=== PATIENT | female | born 1970 | race Caucasian/White ===

== ENCOUNTER 2018-03-02 10:18 | Emergency (ER) | payer BC ==
[2018-03-02 10:26] VITALS: TEMP 97.6
[2018-03-02] MEDS ORDERED: IOPAMIDOL-300 CONTRAST 30 ML VIAL (ORAL USE) PO PRN (10:49)
[2018-03-02] MEDS ORDERED: KETOROLAC 30 MG/ML 1 ML VIAL IVP STA (10:49)
[2018-03-02] MEDS ORDERED: SODIUM CHLORIDE 0.9% 1,000 ML IV ONE (10:49)
[2018-03-02] MEDS ORDERED: DICYCLOMINE 20 MG TAB PO STA (10:49)
--- NOTE | 2018-03-02 11:08 | ED ---
Abdominal Pain HPI - General Chief Complaint: Abdominal Pain Stated Complaint: Back Pain Time Seen by Provider: 03/02/18 10:28 Source: patient Mode of arrival: wheelchair Limitations: no limitations - History of Present Illness Initial Comments: Patient is a 47-year-old female who presents with a chief complaint of abdominal pain. Patient states that this going on for 6 months, she has had extensive workup including labs, CT scans with and without contrast, and an MRI. The patient states that the only thing that they have found are chronic urinary tract infections, and a right renal cyst. Patient states that she also has a history of IBS. The patient cannot identify any inciting incident. She does not recall any changes in lifestyle or inciting incidents of that started this 6 months ago. Patient denies any aggravating or alleviating factors. Timing is constant for her. Patient states that her workup, she was initially told that she had bladder cancer, further investigation did not show any neoplastic process, currently the patient states that her primary care doctor thinks she has a hernia. - Related Data Home Medications Medication Instructions Recorded Confirmed Budesonide-Formot 160-4.5 Mcg 2 puff INHALATION RT-BID 03/02/18 03/02/18 [Symbicort 160-4.5 Mcg Inhaler] Dicyclomine [Bentyl] 20 mg PO DAILY PRN 03/02/18 03/02/18 Magnesium 200 mg PO DAILY 03/02/18 03/02/18 Multivitamins, Thera [Multivitamin 1 tab PO DAILY 03/02/18 03/02/18 (formulary)] Potassium 99 mg PO DAILY 03/02/18 03/02/18 Sulfamethox-Tmp 400-80Mg [Bactrim 1 tab PO DAILY 03/02/18 03/02/18 SS 400-80 mg] Tolterodine Tartrate [Detrol LA] 2 mg PO DAILY 03/02/18 03/02/18 Allergies Allergy/AdvReac Type Severity Reaction Status Date / Time morphine Allergy Chest Pain Verified 03/02/18 11:17 venom-honey bee Allergy Anaphylaxis Verified 03/02/18 11:17 [bee venom (honey bee)] Review of Systems ROS Statement: Those systems with pertinent positive or pertinent negative responses have been documented in the HPI. ROS Other: All systems not noted in ROS Statement are negative. Gastrointestinal: Reports: abdominal pain, nausea Past Medical History Past Medical History: Asthma, Chest Pain / Angina History of Any Multi-Drug Resistant Organisms: None Reported Past Surgical History: Section, Hysterectomy Additional Past Surgical History / Comment(s): hemorrhoidectomy Past Psychological History: No Psychological Hx Reported Smoking Status: Current every day smoker Past Alcohol Use History: None Reported Past Drug Use History: None Reported General Exam Limitations: no limitations General appearance: alert, in no apparent distress Head exam: Present: atraumatic, normocephalic Eye exam: Present: normal appearance ENT exam: Present: normal exam Neck exam: Present: normal inspection Respiratory exam: Present: normal lung sounds bilaterally. Absent: respiratory distress, wheezes Cardiovascular Exam: Present: regular rate, normal rhythm GI/Abdominal exam: Present: soft, tenderness (Patient has tenderness in the right and left upper quadrant, most of her pain is in the right lower quadrant. Abdominal exam is limited secondary to body habitus. There are no overlying skin changes. No fluctuance noted.). Absent: distended Rectal exam: Present: deferred Extremities exam: Present: normal inspection Back exam: Present: normal inspection. Absent: CVA tenderness (R), CVA tenderness (L) Neurological exam: Present: alert, oriented X3 Psychiatric exam: Present: normal affect, normal mood Skin exam: Present: warm, dry, intact Course Vital Signs 03/02/18 03/02/18 10:23 11:20 Temperature 97.6 F Pulse Rate 78 76 Respiratory 18 20 Rate Blood Pressure 102/70 134/71 O2 Sat by Pulse 97 95 Oximetry Medical Decision Making - Medical Decision Making Patient presents with a chief complaint of 6 months of abdominal pain. On initial evaluation, vitals are stable, patient is in mild distress secondary to pain. Patient will be evaluated with basic labs including liver profile and lipase. Lactate Was Sent. Urinalysis Will Be Evaluated. Patient Will Be Sent for a Computed Tomography Scan with Oral and IV Contrast. EKG performed at 11: 07 AM shows normal sinus rhythm with a rate of 68 bpm. EKG is otherwise unremarkable. 1:27 PM Plan evaluation of this patient is unremarkable. Urinalysis is out of her evidence of infection. Computed tomography scan of the abdomen and pelvis with oral and IV contrast shows no acute intra-abdominal process. There are no hernias identified. At this time, patient was reevaluated. She states that she feels improved with Bentyl. Patient will be prescribed Bentyl for outpatient use, she'll be given referral to GI. Patient was instructed to follow up with primary care in 1-2 days, return to the emergency department if symptoms worsen or change. - Lab Data Result diagrams: 03/02/18 11:15 03/02/18 11:15 Lab Results 03/02/18 03/02/18 03/02/18 Range/Units 10:50 11:15 11:15 WBC 12.1 H (3.8-10.6) k/uL RBC 5.03 (3.80-5.40) m/uL Hgb 14.8 (11.4-16.0) gm/dL Hct 42.5 (34.0-46.0) % MCV 84.5 (80.0-100.0) fL MCH 29.3 (25.0-35.0) pg MCHC 34.7 (31.0-37.0) g/dL RDW 12.8 (11.5-15.5) % Plt Count 437 (150-450) k/uL Neutrophils % 72 % Lymphocytes % 20 % Monocytes % 5 % Eosinophils % 2 % Basophils % 1 % Neutrophils # 8.7 H (1.3-7.7) k/uL Lymphocytes # 2.4 (1.0-4.8) k/uL Monocytes # 0.5 (0-1.0) k/uL Eosinophils # 0.2 (0-0.7) k/uL Basophils # 0.1 (0-0.2) k/uL Sodium 142 (137-145) mmol/L Potassium 4.8 (3.5-5.1) mmol/L Chloride 108 H (98-107) mmol/L Carbon Dioxide 24 (22-30) mmol/L Anion Gap 10 mmol/L BUN 13 (7-17) mg/dL Creatinine 0.71 (0.52-1.04) mg/dL Est GFR (CKD-EPI)AfAm >90 (>60 ml/min/1.73 sqM) Est GFR (CKD-EPI)NonAf >90 (>60 ml/min/1.73 sqM) Glucose 99 (74-99) mg/dL Plasma Lactic Acid Tariq (0.7-2.0) mmol/L Calcium 10.0 (8.4-10.2) mg/dL Total Bilirubin 0.2 (0.2-1.3) mg/dL AST 22 (14-36) U/L ALT 40 (9-52) U/L Alkaline Phosphatase 82 (38-126) U/L Total Protein 6.7 (6.3-8.2) g/dL Albumin 4.2 (3.5-5.0) g/dL Lipase 105 (23-300) U/L Urine Color Yellow Urine Appearance Clear (Clear) Urine pH 5.5 (5.0-8.0) Ur Specific [place] 1.021 (1.001-1.035) Urine Protein Negative (Negative) Urine Glucose (UA) Negative (Negative) Urine Ketones Negative (Negative) Urine Blood Moderate H (Negative) Urine Nitrite Negative (Negative) Urine Bilirubin Negative (Negative) Urine Urobilinogen 2.0 (<2.0) mg/dL Ur Leukocyte Esterase Negative (Negative) Urine RBC 2 (0-5) /hpf Urine WBC 2 (0-5) /hpf Urine Bacteria Rare H (None) /hpf Urine Mucus Rare H (None) /hpf 03/02/18 Range/Units 11:15 WBC (3.8-10.6) k/uL RBC (3.80-5.40) m/uL Hgb (11.4-16.0) gm/dL Hct (34.0-46.0) % MCV (80.0-100.0) fL MCH (25.0-35.0) pg MCHC (31.0-37.0) g/dL RDW (11.5-15.5) % Plt Count (150-450) k/uL Neutrophils % % Lymphocytes % % Monocytes % % Eosinophils % % Basophils % % Neutrophils # (1.3-7.7) k/uL Lymphocytes # (1.0-4.8) k/uL Monocytes # (0-1.0) k/uL Eosinophils # (0-0.7) k/uL Basophils # (0-0.2) k/uL Sodium (137-145) mmol/L Potassium (3.5-5.1) mmol/L Chloride (98-107) mmol/L Carbon Dioxide (22-30) mmol/L Anion Gap mmol/L BUN (7-17) mg/dL Creatinine (0.52-1.04) mg/dL Est GFR (CKD-EPI)AfAm (>60 ml/min/1.73 sqM) Est GFR (CKD-EPI)NonAf (>60 ml/min/1.73 sqM) Glucose (74-99) mg/dL Plasma Lactic Acid Tariq 1.0 (0.7-2.0) mmol/L Calcium (8.4-10.2) mg/dL Total Bilirubin (0.2-1.3) mg/dL AST (14-36) U/L ALT (9-52) U/L Alkaline Phosphatase (38-126) U/L Total Protein (6.3-8.2) g/dL Albumin (3.5-5.0) g/dL Lipase (23-300) U/L Urine Color Urine Appearance (Clear) Urine pH (5.0-8.0) Ur Specific [place] (1.001-1.035) Urine Protein (Negative) Urine Glucose (UA) (Negative) Urine Ketones (Negative) Urine Blood (Negative) Urine Nitrite (Negative) Urine Bilirubin (Negative) Urine Urobilinogen (<2.0) mg/dL Ur Leukocyte Esterase (Negative) Urine RBC (0-5) /hpf Urine WBC (0-5) /hpf Urine Bacteria (None) /hpf Urine Mucus (None) /hpf Disposition Clinical Impression: Abdominal pain Disposition: HOME SELF-CARE Condition: Good Instructions: Abdominal Pain (ED) Is patient prescribed a controlled substance at d/c from ED?: No Referrals: Hoang Kidd MD [Primary Care Provider] - 1-2 days Jared Garrison MD [STAFF PHYSICIAN] - 1-2 days
[2018-03-02 11:23] LABS: Appearance,Urine Clear (Clear); Bacteria,Urine Rare /hpf; Bilirubin,Urine Negative (Negative); Blood,Urine Moderate (Negative); Color,Urine Yellow; Glucose,Urine (UA) Negative (Negative); Ketones,Urine Negative (Negative); Leukocyte Esterase,Urine Negative (Negative); Mucus,Urine Rare /hpf; Nitrite,Urine Negative (Negative); PH, Urine 5.5 (5.0-8.0); Protein,Urine Negative (Negative); RBC,Urine 2 /hpf (0-5); Specific Gravity,Urine 1.021 (1.001-1.035); WBC,Urine 2 /hpf (0-5)
[2018-03-02 11:40] LABS: Basophils # (A) 0.1 k/uL (0-0.2); Basophils % (A) 1 %; Eosinophils # (A) 0.2 k/uL (0-0.7); Eosinophils % (A) 2 %; HCT 42.5 % (34.0-46.0); HGB 14.8 gm/dL (11.4-16.0); Lymphocytes # (A) 2.4 k/uL (1.0-4.8); Lymphocytes % (A) 20 %; MCH 29.3 pg (25.0-35.0); MCHC 34.7 g/dL (31.0-37.0); MCV 84.5 fL (80.0-100.0); Monocytes # (A) 0.5 k/uL (0-1.0); Monocytes % (A) 5 %; Neutrophils # (A) 8.7 k/uL (1.3-7.7); Neutrophils % (A) 72 %; Platelet Count 437 k/uL (150-450); RBC 5.03 m/uL (3.80-5.40); RDW 12.8 % (11.5-15.5); WBC 12.1 k/uL (3.8-10.6)
[2018-03-02 11:49] LABS: ALT 40 U/L (9-52); AST 22 U/L (14-36); Albumin 4.2 g/dL (3.5-5.0); Alkaline Phosphatase 82 U/L (38-126); Anion Gap 10 mmol/L; Blood Urea Nitrogen 13 mg/dL (7-17); Carbon Dioxide 24 mmol/L (22-30); Chloride 108 mmol/L (98-107); Glucose 99 mg/dL (74-99); Lipase 105 U/L (23-300); Potassium 4.8 mmol/L (3.5-5.1); Sodium 142 mmol/L (137-145); Total Bilirubin 0.2 mg/dL (0.2-1.3); Total Protein 6.7 g/dL (6.3-8.2)
--- NOTE | 2018-03-02 13:05 | CT ---
EXAMINATION TYPE: CT abdomen pelvis w con DATE OF EXAM: 03/02/2018 HISTORY: Patient complains of right lower quadrant pain. CT DLP: 2213mGycm Automated Exposure Control for Dose Reduction was Utilized. CONTRAST: CT scan of the abdomen and pelvis is performed with IV Contrast, patient injected with 100 mL of Isov ue 300. COMPARISON: Outside CT abdomen and pelvis June 26, 2017 FINDINGS: Exam is slightly suboptimal secondary to artifact related to patient's large body habitus. LUNG BASES: No significant abnormality is appreciated. LIVER/GB: Heterogeneous hypodense liver consistent with fatty infiltration is present. PANCREAS: No significant abnormality is seen. SPLEEN: No significant abnormality is seen. ADRENALS: No significant abnormality is seen. KIDNEYS: A vague 1.3 cm low dense lesion posteriorly lower pole level right kidney seen best series 7 image 44 is too small to further characterize but favored benign. BOWEL: Normal-appearing appendix is seen from base of cecum. Oral contrast does not reach terminal il eum making evaluation slightly suboptimal. There is no suspicious small or large bowel dilatation see n diverticula in the sigmoid colon are present. There is no CT evidence for acute diverticulitis. UTERUS/ADNEXA: Uterus is surgically absent. A left-sided pelvic phlebolith is seen. LYMPH NODES: No greater than 1cm abdominal or pelvic lymph nodes are appreciated. OSSEOUS STRUCTURES: Multilevel facet arthropathy is seen in lower lumbar levels. OTHER: No significant additional abnormality is seen. IMPRESSION: No CT evidence for acute appendicitis. No significant acute finding is seen to account fo r patient's clinical symptoms.
[2018-03-02 13:47] VITALS: BP 123/84; PULSE 69; RESP 18
== END 2018-03-02 13:47 | disposition home or self-care (01) ==
LOC: EC 10:18
DX: R10.9 Unspecified abdominal pain (principal); M54.9 Dorsalgia, unspecified; J45.909 Unspecified asthma, uncomplicated; F17.200 Nicotine dependence, unspecified, uncomplicated; Z87.19 Personal history of other diseases of the digestive system; Z87.440 Personal history of urinary (tract) infections; Z90.710 Acquired absence of both cervix and uterus; Z79.51 Long term (current) use of inhaled steroids; Z79.899 Other long term (current) drug therapy; Z88.5 Allergy status to narcotic agent; Z91.030 Bee allergy status
CPT/HCPCS: 36415; 93005; 80053; 83605; 83690; 85025; 81001; 74177; 99284; 96374; 96361 ×2; J1885; Q9967

== ENCOUNTER → 2018-11-18 | Outpatient (CLI) | payer BC ==
--- NOTE | 2018-11-18 15:47 | NM ---
EXAMINATION TYPE: NM hepatobiliary w EF DATE OF EXAM: 11/18/2018 COMPARISON: 03/02/2018 CT abdomen pelvis HISTORY: Chronic cholecystitis and cholelithiasis per history. TECHNIQUE: After the intravenous administration of 4.65 mCi Tc 99m Mebrofenin hepatobiliary scintigra phy is performed. Immediate images post injection. FINDINGS: There is satisfactory initial accumulation of tracer by the liver. The gallbladder is visualized wit hin 38 minutes. The small bowel activity is noted within 26 minutes. At one hour 8 ounces of oral e nsure plus is given to mimic CCK and gallbladder ejection fraction is calculated at 20 %, abnormal. Therefore there is no scintigraphic evidence of cystic or common bile duct obstruction to suggest acu te cholecystitis or gallbladder dyskinesia. IMPRESSION: 1. Biliary dyskinesia with abnormal ejection fraction of 20%. 2. No scintigraphic evidence of acute or chronic cholecystitis.
== END | disposition home or self-care (01) ==
LOC: RADNMMAIN 13:04
PROVIDERS: ATTEND Surgery Plastic and Reconstructive Surgery
DX: K82.8 Other specified diseases of gallbladder (principal); Z88.5 Allergy status to narcotic agent; Z91.030 Bee allergy status
CPT/HCPCS: 78226; A9537

== ENCOUNTER 2019-01-21 06:25 | Day surgery (SDC) | payer BC ==
[2019-01-19 10:56] VITALS: BMI 50.2
--- NOTE | 2019-01-20 20:11 | P.GSHP ---
History of Present Illness H&P Date: 01/21/19 CHIEF COMPLAINT: Cholecystitis HISTORY OF PRESENT ILLNESS: The patient is a 48-year-old female who presents with history of epigastric including right upper quadrant abdominal pain. She underwent diagnostic studies for her gallbladder. Separately her clinical picture was consistent with cholecystitis. Now she presents for surgical intervention. PAST MEDICAL HISTORY: Please see list PAST SURGICAL HISTORY: Please see list MEDICATIONS: Please see list ALLERGIES: Denies. SOCIAL HISTORY: Recent tobacco use FAMILY HISTORY: Pertinent for gallbladder disease REVIEW OF ORGAN SYSTEMS: CONSTITUTIONAL: No reports of fevers or chills. HEENT: Denies any troubles with the vision or hearing. Has chronic sinusitis SKIN: No skin cancer. PHYSICAL EXAM: VITAL SIGNS: Afebrile vital signs stable GENERAL: Well-developed pleasant in no acute distress. HEENT: No scleral icterus. Extraocular movements grossly intact. Moist buccal mucosa. NECK: Supple without lymphadenopathy. CHEST: Unlabored respirations. Equal bilateral excursions. CARDIOVASCULAR: Regular rate regular rhythm rhythm. Distal 2+ pulses. ABDOMEN: Soft, nondistended. Tender along the epigastrium and right upper quadrant. MUSCULOSKELETAL: No clubbing, cyanosis, or edema. NEURO: Cranial nerves II to XII within normal limits. No focal or lateralizing signs. PSYCH: Alert and oriented to person, place and time. SKIN: Well-perfused good skin turgor. ASSESSMENT: 1. Epigastric and right upper quadrant abdominal pain 2. Chronic cholecystitis 3. Symptomatic gallstones. 4. Leukocytosis 5. Pre-existing hematuria 6. Recurrent urinary tract infections 7. Recurrent sinusitis PLAN: 1. Will need a robotic cholecystectomy possible open. Benefits and risks were described. 2. Heparin for DVT prophylaxis 5000 units. 3. Antibiotic prophylaxis. 4. I personally called the patient as her outpatient labs from [facility] demonstrate a white blood cell count over 16,000. She reports personal history of recurrent urinary tract infection including sinusitis. High likelihood for increased risk for complications including inpatient hospitalization for pre-existing infection. Patient was agreeable with the risks. 5. Repeat CBC and compress it metabolic panel on day of surgery Past Medical History Past Medical History: Asthma, Chest Pain / Angina, GERD/Reflux Additional Past Medical History / Comment(s): intermittent abdominal micaela sides of abd,has blood in urine,urinary leakage,steroids November 2018 History of Any Multi-Drug Resistant Organisms: None Reported Past Surgical History: Section, Hysterectomy, Orthopedic Surgery Additional Past Surgical History / Comment(s): hemorrhoidectomy,rt knee arthroscopy Past Anesthesia/Blood Transfusion Reactions: No Reported Reaction Additional Past Anesthesia/Blood Transfusion Reaction / Comment(s): no hx blood transfusion Smoking Status: Current every day smoker - Past Family History Mother Family Medical History: No Reported History Medications and Allergies Home Medications Medication Instructions Recorded Confirmed Type Magnesium 200 mg PO DAILY 03/02/18 01/19/19 History Multivitamins, Thera [Multivitamin 1 tab PO DAILY 03/02/18 01/19/19 History (formulary)] Potassium 99 mg PO DAILY 03/02/18 01/19/19 History Tolterodine Tartrate [Detrol LA] 4 mg PO DAILY 03/02/18 01/19/19 History Albuterol Inhaler [Ventolin Hfa 1 - 2 puff INHALATION RT-Q6H PRN 01/19/19 01/19/19 History Inhaler] Albuterol Nebulized [Ventolin 2.5 mg INHALATION QID PRN 01/19/19 01/19/19 History Nebulized] Aspirin 81 mg PO DAILY 01/19/19 01/19/19 History Dicyclomine [Bentyl] 20 mg PO BID 01/19/19 01/19/19 History Omeprazole [PriLOSEC] 20 mg PO QAM 01/19/19 01/19/19 History Allergies Allergy/AdvReac Type Severity Reaction Status Date / Time morphine Allergy Chest Pain Verified 01/19/19 10:43 venom-honey bee Allergy Anaphylaxis Verified 01/19/19 10:43 [bee venom (honey bee)]
[~2019-01-21 06:25] MED LIST: ENOXAPARIN 40 MG/0.4 ML SYRINGE SQ STA; HEPARIN SODIUM,PORCINE 5,000 UNIT/ML 1 ML VIAL SQ ONE; INDOCYANINE GREEN 25 MG VIAL IV STA; ceFAZolin 3 GM in SODIUM CHLORIDE 0.9% 100 ML IVPB ONE
[2019-01-21] MEDS ORDERED: LACTATED RINGERS 1,000 ML IV ONE ×2 (06:58→08:33)
[2019-01-21] MEDS ORDERED: LIDOCAINE 1% 20 ML VIAL (10MG/ML) FOR IV START INTRADERMA ONE (06:58)
[2019-01-21] MEDS ORDERED: DEXAMETHASONE SOD PHOSPHATE 10 MG/ML 1 ML VIAL IV ONE (07:02)
[2019-01-21 07:03] LABS: Basophils # (A) 0.2 k/uL (0-0.2); Basophils % (A) 1 %; Eosinophils # (A) 0.4 k/uL (0-0.7); Eosinophils % (A) 3 %; HCT 44.4 % (34.0-46.0); HGB 14.7 gm/dL (11.4-16.0); Lymphocytes # (A) 3.4 k/uL (1.0-4.8); Lymphocytes % (A) 23 %; MCH 28.5 pg (25.0-35.0); MCHC 33.1 g/dL (31.0-37.0); Monocytes # (A) 0.7 k/uL (0-1.0); Monocytes % (A) 5 %; Neutrophils % (A) 67 %; Platelet Count 499 k/uL (150-450); RBC 5.17 m/uL (3.80-5.40); RDW 14.1 % (11.5-15.5); WBC 14.9 k/uL (3.8-10.6)
[2019-01-21] MEDS ORDERED: ONDANSETRON 4 MG/2 ML VIAL IVP ONE (07:03)
[2019-01-21 07:12] LABS: ALT 33 U/L (9-52); AST 16 U/L (14-36); Alkaline Phosphatase 83 U/L (38-126); Anion Gap 7 mmol/L; Blood Urea Nitrogen 16 mg/dL (7-17); Calcium 9.9 mg/dL (8.4-10.2); Carbon Dioxide 28 mmol/L (22-30); Chloride 105 mmol/L (98-107); Glucose 114 mg/dL (74-99); Potassium 4.2 mmol/L (3.5-5.1); Sodium 140 mmol/L (137-145); Total Bilirubin 0.4 mg/dL (0.2-1.3); Total Protein 6.8 g/dL (6.3-8.2)
[2019-01-21] MEDS ORDERED: BUPIVACAINE-EPI 0.5%-1:200,000 10 ML VIAL SQ ONE ×2 (07:23→07:54)
[2019-01-21] MEDS ORDERED: ALBUTEROL INHALER 60 PUFF/8 GM INHALER INHALATION ONE (07:23)
[2019-01-21] MEDS ORDERED: fentaNYL (PF) 50 MCG/ML 2 ML AMP ONE (07:23)
[2019-01-21] MEDS ORDERED: PROPOFOL 10 MG/ML 20 ML VIAL IV ONE (07:23)
[2019-01-21] MEDS ORDERED: ROCURONIUM BROMIDE 10 MG/ML 10 ML VIAL IV ONE (07:23)
[2019-01-21] MEDS ORDERED: NEOSTIGMINE 1 MG/ML 10 ML VIAL ONE (07:23)
[2019-01-21] MEDS ORDERED: LIDOCAINE 1% INJ 10MG/ML (20 ML MDV) ONE (07:23)
[2019-01-21] MEDS ORDERED: GLYCOPYRROLATE 0.2 MG/ML 2 ML VIAL ONE (07:23)
[2019-01-21] MEDS ORDERED: PHENYLEPHRINE-0.9% NACL SYG 1 MG/10 ML SYRINGE ONE (07:23)
[2019-01-21] MEDS ORDERED: INDOCYANINE GREEN 25 MG VIAL IV ONE ×2 (07:23→07:30)
[2019-01-21] MEDS ORDERED: SUCCINYLCHOLINE CHLORIDE VIAL 200 MG/10 ML VIAL IV ONE (07:23)
[2019-01-21] MEDS ORDERED: MIDAZOLAM 2 MG/2 ML VIAL ONE (07:23)
[2019-01-21] MEDS: HYDROmorphone 1 MG/ML 1 ML SYRINGE IVP ONE ×4 (09:08→09:27)
[2019-01-21 09:16] VITALS: TEMP 96.9
--- NOTE | 2019-01-21 09:24 | P.OP ---
Date of Procedure: 01/21/19 Description of Procedure: SURGEON: LETTY CHERRY MD PREOPERATIVE DIAGNOSES: 1. Pre-existing leukocytosis with sinusitis 2. Chronic cholecystitis 3. Morbid obesity due to excess calories, BMI 50.2 4. Chronic tobacco abuse 5. Hypertensive heart disease 6. Hematuria with chronic UTI 7. Irritable bowel syndrome POSTOPERATIVE DIAGNOSES: 1. Pre-existing leukocytosis with sinusitis 2. Acute on chronic cholecystitis 3. Morbid obesity due to excess calories, BMI 50.2 4. Chronic tobacco abuse 5. Hypertensive heart disease 6. Hematuria with chronic UTI 7. Irritable bowel syndrome 8. Fatty liver disease with severe hepatomegaly OPERATION: Robotic-assisted da Pito Xi laparoscopic cholecystectomy, multiport with FIREFLY ESTIMATED BLOOD LOSS: 30 mL. SPECIMENS REMOVED: Gallbladder. COMPLICATIONS: None. OPERATIVE FINDINGS: 1. Chronic cholecystitis 2. Severe hepatomegaly with fatty liver disease 3. Adhesion along lower midline undisturbed 4. Console time 33 minutes INDICATIONS: The patient is a 48-year-old female who presents with cholelcystitis and leukocytosis. Surgical intervention with a laparoscopic cholecystectomy was described at length including injury to the biliary tree, bleeding, infection, need for further surgery. Informed consent was obtain ed. Robotic assisted laparoscopic approach was described. Benefits and risks of the procedure including but not limited to bleeding, infection, injury to the biliary tree was described. Informed consent was obtained. DESCRIPTION OF PROCEDURE: Patient was brought to the operating room, placed in supine position. After general induction, the abdomen had been prepped and draped in standard sterile fashion. The robotic da Pito XI system was primed. After a timeout protocol was performed, the patient had been prepped and draped in standard sterile fashion. The patient was injected with indocyanine green. A 5 mm 0 degrees laparoscopic trocar entry was performed along the left upper quadrant. The abdomen insufflated to 15 mmHg pressure which was tolerated well. Diagnostic laparoscopy demonstrated no injury to bowel viscera or mesentery. The liver surface was unremarkable. Next, two 8 mm robotic ports were placed along the right upper abdomen. The camera 8-mm port was maintained along the epigastrium. Another 8 mm port was placed along the left upper abdominal wall after exchanging the 5 mm port. Please note that the ports were placed at least 10 to 15 cm away from the target anatomy of the gallbladder. The robot was docked along the left lateral abdomen. The patient was repositioned in reverse Trendelenburg position. Using a grasper for arm 3, a grasper for arm 4, including hook cautery for arm 1, the robotic system was docked and primed as described. Instruments were interchanged by the apartment assistant manager including hook cautery, Bovie cautery and clip appliers. I had sat at the console. The gallbladder fundus was retracted over the dome of the liver. Initial attention was brought to the infundibulum which was gently retracted in the inferior lateral approach. Using a grasper, the cystic duct including the cystic artery was carefully skeletonized. FIREFLY was used to identify the cystic artery and cystic structures. Large PLASTIC clips were used throughout the entire case. Using a clip nutritional yeast supervisor 2 clips were placed proximally, and 1 clip was placed distally along the cystic duct and then cauterized with the cautery. Again care was taken to avoid any injury to the biliary tree as the common bile duct was clearly visualized during this portion of dissection. Next, the cystic artery was similarly clipped and cauterized. Electro-Bovie cautery was used to remove the gallbladder from the hepatic fossa. Hemostasis was checked and found to be adequate. The robot was undocked. I re-scrubbed into the case. Using a 10 mm Endo Catch bag via the left upper quadrant incision, the specimen was removed from the abdominal cavity. All pneumoperitoneum instruments were evacuated from the abdominal cavity. The incisions were reapproximated using 4-0 Monocryl in an interrupted subcuticular fashion. Fascial defects were less than 8 mm in size. Please note along the trocar sites, local anesthetic was placed as a field block prior to insertion of all instruments. Liquid glue was applied to the skin. At the end of the procedure needle, sponge, and instrument count had been verified correct by the assembler surgical garment. The patient was transferred to postanesthesia care unit in stable condition. Intraoperative films were shared with the patient's family who were very pleased with the level of care. Plan - Discharge Summary Discharge Rx Participant: No New Discharge Prescriptions: New Amoxic-Pot Clav 875-125Mg [Augmentin 875-125] 1 each PO Q12HR #10 tab Ibuprofen [Motrin] 600 mg PO Q8HR PRN #30 tab PRN Reason: Pain Acetaminophen [Tylenol] 325 mg PO Q4H #30 tab No Action Tolterodine Tartrate [Detrol LA] 4 mg PO DAILY Multivitamins, Thera [Multivitamin (formulary)] 1 tab PO DAILY Magnesium 200 mg PO DAILY Potassium 99 mg PO DAILY Albuterol Inhaler [Ventolin Hfa Inhaler] 1 - 2 puff INHALATION RT-Q6H PRN PRN Reason: sob Dicyclomine [Bentyl] 20 mg PO BID Aspirin 81 mg PO DAILY Omeprazole [PriLOSEC] 20 mg PO QAM Albuterol Nebulized [Ventolin Nebulized] 2.5 mg INHALATION QID PRN PRN Reason: sob Discharge Medication List Magnesium 200 mg PO DAILY 03/02/18 [History] Multivitamins, Thera [Multivitamin (formulary)] 1 tab PO DAILY 03/02/18 [History] Potassium 99 mg PO DAILY 03/02/18 [History] Tolterodine Tartrate [Detrol LA] 4 mg PO DAILY 03/02/18 [History] Albuterol Inhaler [Ventolin Hfa Inhaler] 1 - 2 puff INHALATION RT-Q6H PRN 01/19/19 [History] Albuterol Nebulized [Ventolin Nebulized] 2.5 mg INHALATION QID PRN 01/19/19 [History] Aspirin 81 mg PO DAILY 01/19/19 [History] Dicyclomine [Bentyl] 20 mg PO BID 01/19/19 [History] Omeprazole [PriLOSEC] 20 mg PO QAM 01/19/19 [History] Acetaminophen [Tylenol] 325 mg PO Q4H #30 tab 01/21/19 [Rx] Amoxic-Pot Clav 875-125Mg [Augmentin 875-125] 1 each PO Q12HR #10 tab 01/21/19 [Rx] Ibuprofen [Motrin] 600 mg PO Q8HR PRN #30 tab 01/21/19 [Rx] Follow up Appointment(s)/Referral(s): Letty Cherry MD [STAFF PHYSICIAN] - 02/08/19 ([facility]) Patient Instructions/Handouts: Low Fat Diet (ED), Laparoscopic Cholecystectomy (DC), Non-Alcoholic Fatty Liver Disease (DC) Activity/Diet/Wound Care/Special Instructions: No lifting over 4 pounds in 1 week. May shower. No bathtub soaks for 1 week. Low fat diet for 2 days. Discharge Disposition: HOME SELF-CARE
[2019-01-21 09:58] VITALS: RESP 92
[2019-01-21 10:24] VITALS: BP 123/65; PULSE 73
[2019-01-21] MEDS ORDERED: IBUPROFEN 200 MG TAB PO ONE (10:26)
== END 2019-01-21 10:56 | disposition home or self-care (01) ==
LOC: OR 06:25
PROVIDERS: ATTEND Surgery Plastic and Reconstructive Surgery
DX: K81.2 Acute cholecystitis with chronic cholecystitis (principal); K66.0 Peritoneal adhesions (postprocedural) (postinfection); K76.0 Fatty (change of) liver, not elsewhere classified; D72.829 Elevated white blood cell count, unspecified; J32.9 Chronic sinusitis, unspecified; E66.01 Morbid (severe) obesity due to excess calories; Z68.43 Body mass index [BMI] 50.0-59.9, adult; I11.9 Hypertensive heart disease without heart failure; N39.0 Urinary tract infection, site not specified; R31.9 Hematuria, unspecified; K58.9 Irritable bowel syndrome, unspecified; J45.909 Unspecified asthma, uncomplicated; K21.9 Gastro-esophageal reflux disease without esophagitis; I20.9 Angina pectoris, unspecified; F17.210 Nicotine dependence, cigarettes, uncomplicated; Z79.82 Long term (current) use of aspirin; Z79.899 Other long term (current) drug therapy; Z88.5 Allergy status to narcotic agent; Z91.030 Bee allergy status; Z87.440 Personal history of urinary (tract) infections
CPT/HCPCS: 88304; 80053; 85025; 47562; J2250; J0330; J1100; J2710; J0690; J2405; J2001; J3010; J1170; J2370; J2704

== ENCOUNTER 2020-02-21 11:33 | Emergency (ER) | payer BC, OTHER ==
[2020-02-21 11:40] VITALS: BP 106/72; PULSE 87; RESP 18; TEMP 98.2
--- NOTE | 2020-02-21 11:58 | ED ---
Lower Extremity Injury HPI - General Chief Complaint: Extremity Injury, Lower Stated Complaint: R KNEE PAIN Time Seen by Provider: 02/21/20 11:42 Source: patient Mode of arrival: wheelchair Limitations: no limitations - History of Present Illness Initial Comments: Patient is a 49-year-old female presenting to the emergency department with chief complaint of right knee pain. Patient states 4 months ago she had a total knee arthroplasty and underwent physical therapy. Patient states she return to work about one week ago. States while she was at work today, she suffered a twisting injury to her right knee and felt a "click". Patient states she developed sudden onset of pain on the infrapatellar region of the right knee. States there is some swelling in the region as well. Denies any erythema or ecchymotic changes. Denies taking medication to alleviate the pain. States the pain is exacerbated with knee flexion although she is able to flex it. Denies taking medication to alleviate the symptoms. Denies any numbness or tingling. - Related Data Home Medications Medication Instructions Recorded Confirmed Magnesium 200 mg PO DAILY 03/02/18 01/21/19 Multivitamins, Thera [Multivitamin 1 tab PO DAILY 03/02/18 01/21/19 (formulary)] Potassium 99 mg PO DAILY 03/02/18 01/21/19 Tolterodine Tartrate [Detrol LA] 4 mg PO DAILY 03/02/18 01/21/19 Albuterol Inhaler (Mhu) [Ventolin 1 - 2 puff INHALATION RT-Q6H PRN 01/19/19 01/21/19 Hfa Inhaler] Albuterol Nebulized [Ventolin 2.5 mg INHALATION QID PRN 01/19/19 01/21/19 Nebulized] Aspirin 81 mg PO DAILY 01/19/19 01/21/19 Dicyclomine [Bentyl] 20 mg PO BID 01/19/19 01/21/19 Omeprazole [PriLOSEC] 20 mg PO QAM 01/19/19 01/21/19 Previous Rx's Medication Instructions Recorded Acetaminophen [Tylenol] 325 mg PO Q4H #30 tab 01/21/19 Amoxic-Pot Clav 875-125Mg 1 each PO Q12HR #10 tab 01/21/19 [Augmentin 875-125] Ibuprofen [Motrin] 600 mg PO Q8HR PRN #30 tab 01/21/19 Allergies Allergy/AdvReac Type Severity Reaction Status Date / Time morphine Allergy Chest Pain Verified 02/21/20 11:40 venom-honey bee Allergy Anaphylaxis Verified 02/21/20 11:40 [bee venom (honey bee)] Review of Systems ROS Statement: Those systems with pertinent positive or pertinent negative responses have been documented in the HPI. ROS Other: All systems not noted in ROS Statement are negative. Past Medical History Past Medical History: Asthma, Chest Pain / Angina, GERD/Reflux Additional Past Medical History / Comment(s): intermittent abdominal micaela sides of abd,has blood in urine,urinary leakage,steroids November 2018 History of Any Multi-Drug Resistant Organisms: None Reported Past Surgical History: Section, Hysterectomy, Orthopedic Surgery Additional Past Surgical History / Comment(s): hemorrhoidectomy,rt knee arthroscopy right knee replacement Past Anesthesia/Blood Transfusion Reactions: No Reported Reaction Additional Past Anesthesia/Blood Transfusion Reaction / Comment(s): no hx blood transfusion Past Psychological History: No Psychological Hx Reported Smoking Status: Current every day smoker - Past Family History Mother Family Medical History: No Reported History General Exam Limitations: no limitations General appearance: alert, in no apparent distress, obese Head exam: Present: atraumatic, normocephalic, normal inspection Eye exam: Present: normal appearance, PERRL, EOMI Pupils: Present: normal accommodation ENT exam: Present: normal exam, normal oropharynx, mucous membranes moist Neck exam: Present: normal inspection, full ROM Respiratory exam: Present: normal lung sounds bilaterally. Absent: respiratory distress, wheezes, rales Cardiovascular Exam: Present: regular rate, normal rhythm, normal heart sounds Extremities exam: Present: full ROM (Full range of motion on the right knee with pain on flexion. Unable to elicit a thorough anterior drawer exam due to patient's body habitus.), tenderness (Tenderness along the infrapatellar region of the right knee.), normal capillary refill, joint swelling (Right knee), other (+2 dorsalis pedis and posterior tibialis bilaterally. Full sensation in bilateral lower extremities.). Absent: normal inspection (Mild swelling noted on the anterior aspect of the right knee.), pedal edema, calf tenderness Back exam: Present: normal inspection, full ROM Neurological exam: Present: alert, oriented X3 Psychiatric exam: Present: normal affect, normal mood Skin exam: Present: warm, dry, intact, normal color Course Vital Signs 02/21/20 11:36 Temperature 98.2 F Pulse Rate 87 Respiratory 18 Rate Blood Pressure 106/72 O2 Sat by Pulse 96 Oximetry Medical Decision Making - Medical Decision Making Patient is a 49-year-old female presenting to emergency Department with a chief complaint of right knee pain. X-ray reveals mild subcutaneous edema but no signs of fractures or dislocations. Neurovascularly intact. Considering the patient's mechanism of injury, suspect ligamentous injury. Advised the patient to call her orthopedic surgeon in follow-up with them. Advised to alternate between Tylenol and Motrin for pain control. Advised to ice, finding brace and elevate the right lower extremity. Return parameters were thoroughly discussed patient is understanding and agreeable. Case discussed with physician. Disposition Clinical Impression: Right knee injury, Right knee pain, Swelling of right knee joint Disposition: HOME SELF-CARE Condition: Stable Instructions (If sedation given, give patient instructions): Knee Sprain (ED) Additional Instructions: Follow-up with your orthopedic surgeon. Apply ice, alternate between Tylenol and Motrin and keep the right leg elevated. Return to emergency department if symptoms worsen. Is patient prescribed a controlled substance at d/c from ED?: No Referrals: Hoang Kidd MD [Primary Care Provider] - 1-2 days Time of Disposition: 12:44
--- NOTE | 2020-02-21 12:21 | XR ---
EXAMINATION TYPE: XR knee complete RT DATE OF EXAM: 02/21/2020 CLINICAL HISTORY: Right knee pain after twisting injury TECHNIQUE: Three views of the right knee are obtained. COMPARISON: None. FINDINGS: There is no acute fracture/dislocation evident in right knee. Right knee arthroplasty main tains normal alignment. The tri-compartment joint spaces appear aligned. Mild subcutaneous edema over the anterolateral knee. IMPRESSION: Mild subcutaneous edema seen over the anterolateral knee. There is no acute fracture or dislocation in the right knee.
== END 2020-02-21 13:28 | disposition home or self-care (01) ==
LOC: EC 11:33
DX: S89.91XA Unspecified injury of right lower leg, initial encounter (principal); M25.461 Effusion, right knee; K21.9 Gastro-esophageal reflux disease without esophagitis; J45.909 Unspecified asthma, uncomplicated; F17.200 Nicotine dependence, unspecified, uncomplicated; Z79.82 Long term (current) use of aspirin; Z79.899 Other long term (current) drug therapy; Z88.5 Allergy status to narcotic agent; Z91.030 Bee allergy status; Z96.651 Presence of right artificial knee joint; X50.1XXA Overexertion from prolonged static or awkward postures, initial encounter; Y92.69 Other specified industrial and construction area as the place of occurrence of the external cause; Y99.0 Civilian activity done for income or pay
CPT/HCPCS: 99283

== ENCOUNTER → 2020-02-23 | Outpatient (CLI) | payer OTHER ==
--- NOTE | 2020-02-23 11:59 | XR ---
EXAMINATION TYPE: XR ankle complete RT DATE OF EXAM: 02/23/2020 COMPARISON: None HISTORY: Twisted ankle, pain TECHNIQUE: Three-view right ankle FINDINGS: Ankle mortise is intact. No acute fractures or dislocations are evident. Soft tissues are n ormal. Plantar and Achilles tendon calcaneal heel spurs are present. Follow-up exams can be performed 7-10 days from acute trauma for continued. IMPRESSION: 1. No acute osseous abnormality right ankle 2. Calcaneal heel spurs.
== END | disposition home or self-care (01) ==
LOC: RADXRMAIN 11:39
PROVIDERS: ATTEND Emergency Medicine
DX: M77.31 Calcaneal spur, right foot (principal)